=== PATIENT | female | born 1960 | race Caucasian/White ===

== ENCOUNTER → 2019-08-14 12:52 | Outpatient (BNVA) | payer MEDICARE, SELFPAY | PROVIDERS: PCP Family Medicine; Visit Provider Family Medicine | DX: I10 Essential (primary) hypertension (principal); G47.00 Insomnia, unspecified; F41.9 Anxiety disorder, unspecified; E78.2 Mixed hyperlipidemia; K21.9 Gastro-esophageal reflux disease without esophagitis | CPT/HCPCS: 80053; 80061; 84443 ==

== ENCOUNTER → 2019-08-28 09:08 | Outpatient (BNVA) | payer MEDICARE, SELFPAY | PROVIDERS: PCP Family Medicine; Visit Provider Family Medicine | DX: R30.0 Dysuria (principal); N39.0 Urinary tract infection, site not specified; N30.00 Acute cystitis without hematuria | CPT/HCPCS: 80053; 87077; 87086; 87186 ==

== ENCOUNTER → 2019-12-06 11:03 | Outpatient (BNVA) | payer MEDICARE, SELFPAY | PROVIDERS: PCP Family Medicine; Visit Provider Nurse Practitioner Family | DX: Z11.59 Encounter for screening for other viral diseases (principal); Z20.828 Contact with and (suspected) exposure to other viral communicable diseases; J06.9 Acute upper respiratory infection, unspecified | CPT/HCPCS: 87635 ==

== ENCOUNTER 2019-12-09 10:57 | Emergency (ER) | payer MEDICARE, SELFPAY ==
[2019-12-09 11:04] VITALS: BP 125/75; PULSE 84; RESP 17; TEMP 36.7; O2SAT 99; BMI 45.7
--- NOTE | 2019-12-09 11:28 | W.ED.GENADLT ---
HPI - General Adult General: Chief complaint: General Medical Stated complaint: Muscle aches,fatigue,swelling under left armpit Time Seen by Provider: 12/09/19 11:24 History of Present Illness: HPI narrative: Center complains about fever chills not feeling good recently diagnosed with lymphadenitis left armpit area placed on Bactrim for about 24 hours she said she not getting better here because it hurts. Did not feel good. Fever and chills she had or previous to this infection has no Covid exposure has been tested for Covid recently come back negative MD complaint: Left armpit pain Onset (ago): day(s) Severity scale (1-10): 6 Quality: aching Pain Consistency: constant Relieving factors: none Associated symptoms: Reports fevers/chills; Deny chest pain, dyspnea, headache(s), nausea, rash or vomiting Review of Systems Const: Reports: fever(s), chills and body aches Eyes: Denies: change in vision or blurry vision ENMT: Denies: throat pain or nasal congestion Card: Denies: chest pain or dyspnea on exertion Resp: Denies: dyspnea, productive cough or non-productive cough GI: Denies: abdominal pain, nausea or vomiting Musc: Denies: extremity pain Skin/Breast: Reports: skin tenderness and other (Tenderness left armpit); Denies: rash Neuro: Denies: headache(s) Psych: Denies: anxiety or depression Tomas/Lymph: Denies: easy bruising PFSH ED PFSH: Medical History (Updated 12/09/19 @ 12:41 by KAUR Hodge) Anxiety Hypertension Social History (Updated 12/09/19 @ 11:22 by Michelle Garcia RN) Smoking and tobacco status: never smoked Physical Exam Const: COMMON NORMALS: no acute distress, average body habitus and patient oriented x3 HENMT: COMMON NORMALS: normocephalic HEAD & SCALP: normal to inspection and normocephalic FACE & SINUS: normal facial exam Eye: COMMON NORMALS: conjunctivae normal GENERAL EYE: appearance normal, both eyes and all related structures CONJUNCTIVA: Yes conjunctivae normal Neck/C-Spine: COMMON NORMALS: no JVD Chest: COMMONS NORMALS: normal inspection of the chest Resp: COMMON NORMALS: normal respiratory effort and clear to auscultation bilaterally AUSCULTATION: clear to auscultation bilaterally Cardio: COMMON NORMALS: no JVD, regular rate and regular rhythm RATE: regular rate RHYTHM: regular rhythm GI: COMMON NORMALS: Normal to inspection, nondistended, normoactive bowel sounds present Extremity: COMMON NORMALS: normal to inspection and full ROM Neuro: COMMON NORMALS: patient oriented x3 Skin: NARRATIVE SKIN EXAM: Tenderness to left armpit that radiates toward the tail of the left breast slightly swollen no redness noted Course Vital Signs: Vital signs: Vital Signs Temperature 98.1 F 12/09/19 11:04 Pulse Rate 84 12/09/19 11:04 Respiratory Rate 17 12/09/19 11:04 Blood Pressure 116/69 12/09/19 12:19 Pulse Oximetry 99 12/09/19 11:04 [facility] - General Adult Lab Data: Labs: Lab Results 12/09/19 12/09/19 Range/Units 12:08 12:08 WBC 6.9 (4.0-10.0) 10^3/ uL RBC 4.69 (4.1-5.3) 10^6/u L Hgb 12.8 (11.5-15.3) g/dL Hct 40.3 (37.0-47.0) % MCV 85.9 (81-99) fL MCH 27.3 L (28.0-34.0) pg MCHC 31.8 (30.0-36.0) g/dL RDW 13.2 (12.1-15.1) % Plt Count 209 (130-400) 10^3/c mm MPV 11.5 H (7.4-10.4) fL Neut % (Auto) 58.1 % Lymph % (Auto) 26.6 % [place] % (Auto) 8.0 % Eos % (Auto) 6.6 % Baso % (Auto) 0.6 % Neut # (Auto) 3.98 (1.8-7.7) 10^3/u L Lymph # (Auto) 1.8 (0.8-4.8) 10^3/u L [place] # (Auto) 0.6 (0.2-0.9) 10^3/u L Eos # (Auto) 0.5 (0.0-0.8) 10^3/u L Baso # (Auto) 0.0 (0.0-0.1) 10^3/u L Nucleated RBC % (a uto) 0 % Nucleated RBCs # 0.0 /100WBC Sodium 136 (136-145) mmol/L Potassium 3.8 (3.5-5.1) mmol/L Chloride 100 (98-107) mmol/L Carbon Dioxide 26 (22-29) mmol/L Anion Gap 13.8 (5-19) BUN 11 (8-23) mg/dL Creatinine 0.8 (0.5-0.9) mg/dL GFR Calculation 73.2 L (90-130) mL/min Glucose 113 (65-115) mg/dL Calculated Osmolal ity 282 L (285-295) mOsm/k g Calcium 9.1 (8.5-10.5) mg/dL Discharge Plan Discharge Patient Disposition: Home Clinical Impression: Lymphadenitis Condition: Stable Prescriptions: New tramadol 50 mg tablet 50 mg PO TID PRN (Reason: pain) Qty: 14 RF: 0 No Action sulfamethoxazole-trimethoprim [Bactrim DS] 800-160 mg tablet 1 tab PO BID Qty: 20 RF: 0 diazepam 5 mg tablet 5 mg PO BID PRN (Reason: anxiety) Qty: 60 RF: 3 atorvastatin 20 mg tablet 20 mg PO DAILY Qty: 30 RF: 3 lisinopril 40 mg tablet 40 mg PO DAILY Qty: 30 RF: 4 pantoprazole 40 mg tablet,delayed release (DR/EC) 40 mg PO BID Qty: 60 RF: 4 phenazopyridine [Pyridium] 100 mg tablet 100 mg PO TID PRN (Reason: pain) Qty: 20 RF: 0 sertraline [Zoloft] 100 mg tablet 100 mg PO DAILY Qty: 30 RF: 3 trazodone 100 mg tablet 100 mg PO BEDTIME RF: 0 Discharge Orders: Discharge Order (Routine); Ordered 12/09/19 Ordered By: Layton Nolasco Referrals: Angy Daly MD [Primary Care Provider] - Discharge Diet: Usual diet Discharge Activity: Increase activity as tolerated Activity Restrictions/Additional Instructions: Follow-up your primary care doctor this week and get this area of tenderness relooked at see if you might need an ultrasound your breast are that area. Take medication as directed and the medication that you are already on for this continue that Discharge Date/Time: 12/09/19 12:48 Coding Level of Care Code ED Water Quality Analyst for Chg Fwd Exam Comprehensive
[2019-12-09] MEDS: HYDROcodone-acetaminophen 5-325 mg Tablet 1 TAB PO (11:46)
[2019-12-09 12:19] VITALS: BP 116/69
[2019-12-09 12:19] LABS: Basophils % 0.6 %; Eosinophils # 0.5 10^3/uL (0.0-0.8); Eosinophils % 6.6 %; Hematocrit 40.3 % (37.0-47.0); Hemoglobin 12.8 g/dL (11.5-15.3); Lymphocytes # 1.8 10^3/uL (0.8-4.8); Lymphocytes % 26.6 %; Mean Corpuscular HGB Conc 31.8 g/dL (30.0-36.0); Mean Corpuscular Hemoglobin 27.3 pg (28.0-34.0); Mean Corpuscular Volume 85.9 fL (81-99); Mean Platelet Volume 11.5 fL (7.4-10.4); Monocytes # 0.6 10^3/uL (0.2-0.9); Neutrophils # 3.98 10^3/uL (1.8-7.7); Neutrophils % 58.1 %; Nucleated Red Blood Cells % 0 %; Platelet Count 209 10^3/cmm (130-400); Red Blood Count 4.69 10^6/uL (4.1-5.3); Red Cell Distribution Width 13.2 % (12.1-15.1); White Blood Count 6.9 10^3/uL (4.0-10.0)
[2019-12-09] MEDS: cefTRIAXone 1,000 mg SDV 1000 MG IM (12:24)
[2019-12-09] MEDS: lidocaine 1% INJ 20 mL 2.1 ML IM (12:24)
[2019-12-09 12:39] LABS: Anion Gap 13.8 (5-19); Blood Urea Nitrogen 11 mg/dL (8-23); Calcium 9.1 mg/dL (8.5-10.5); Carbon Dioxide 26 mmol/L (22-29); Chloride 100 mmol/L (98-107); Glomerular Filtration Rate 73.2 mL/min (90-130); Glucose 113 mg/dL (65-115); Osmolality Calculated 282 mOsm/kg (285-295); Potassium 3.8 mmol/L (3.5-5.1); Sodium 136 mmol/L (136-145)
== END 2019-12-09 12:48 | disposition home or self-care (01) ==
PROVIDERS: Emergency Provider Nurse Practitioner Family; PCP Family Medicine
DX: I88.9 Nonspecific lymphadenitis, unspecified (principal); I10 Essential (primary) hypertension
CPT/HCPCS: 12345; 80048; 85025; 96372; 99281; 99283; J0696

== ENCOUNTER 2019-12-14 08:39 | Outpatient (CLI) | payer MEDICARE, SELFPAY ==
--- NOTE | 2019-12-14 08:45 | US_ITS ---
WS: [id number] INDICATION: Left axillary swelling tenderness TECHNIQUE: Ultrasound left axilla. FINDINGS: Ultrasound left axilla in the area of concern. 2 lymph nodes are visualized, the largest me asuring 3.8 x 2.2 x 2.4 CM. This lymph node demonstrates abnormal cortical thickening with partial re placement of the fatty hilum. Smaller more normal-appearing lymph node measures 1.8 x 0.8 x 1.5 CM. Consider ultrasound-guided biop sy of the larger lymph node US/US soft tissue/extremity [id number] IMPRESSION: Enlarged lymph nodes in the left axilla the largest measuring 3.8 x 2.2 x 2.4 CM with abnormal cortical thickening. Consider ultrasound-guided bio psy for further evaluation.
== END 2019-12-14 08:40 | disposition home or self-care (01) ==
LOC: RAD 08:45
PROVIDERS: PCP Family Medicine; Visit Provider Nurse Practitioner Family
DX: M79.89 Other specified soft tissue disorders (principal); R59.0 Localized enlarged lymph nodes
CPT/HCPCS: 76882

== ENCOUNTER 2019-12-19 09:28 | Outpatient (CLI) | payer MEDICARE, SELFPAY ==
[2019-12-19] MEDS: iohexol 300 mg/mL 50 mL Btl PO (10:13)
--- NOTE | 2019-12-19 11:00 | CT_ITS ---
WS: [id number] CT CHEST, ABDOMEN, AND PELVIS TECHNIQUE: Contrast-enhanced CT of the chest, abdomen, and pelvis with coronal and sagittal reformatt ed images. CLINICAL INFORMATION: unexplained weight loss; fatigue COMPARISON: None. DLP: 2265.[address] scans at [facility] use at least one of these dose optimization techniques: automat ed exposure control; mA and/or kV adjustment per patient size (includes targeted exams where dose is matched to clinical indication); or iterative reconstruction. CT CHEST: Homogeneously enhancing well-circumscribed anterior mediastinal mass abutting the left main pulmonary artery and pulmonary artery trunk in a suprahilar location. This measures approximately 5.2 x 4.0 x 4.3 cm AP by transverse by craniocaudal. This appears well-circumscribed. Preservation of the fat bernard ne between the mass and surrounding vascular structures. No evidence of invasion. No significant mass effect on the left main pulmonary artery. Proximal main pulmonary arteries are patent. Normal caliber thoracic aorta. No mediastinal or hilar l ymphadenopathy. No axillary lymphadenopathy. Both lungs are well aerated. No focal pneumonia or pleur al fluid. No suspicious pulmonary parenchymal abnormalities. CT ABDOMEN AND PELVIS: Diffuse fatty infiltration of the liver. Gastric lap banding. Normal spleen. Fatty atrophy of the creas. Adrenal glands are normal. Normal renal parenchymal enhancement. No hydronephrosis. Normal asya iber abdominal aorta. Diverticulosis. No evidence of acute diverticulitis. No evidence of small or large bowel obstruction. Tiny fat-containing umbilical hernia. No adenopathy in the abdomen or pelvis. Prior postoperative changes hysterectomy. Prior postoperative cholecystectomy. Gastric lap banding. CT/CT chest abd pel w con* IMPRESSION: 1. Well-circumscribed enhancing solid left anterior mediastinal mass abutting the pulmonary trunk and left main pulmonary artery in a suprahilar location. 2. This lesion measures 5.2 x 4.0 x 4.3 cm and is well circumscribed with pres ervation of the surrounding fat planes. Primary differential consideration incl udes thymic neoplasm such as thymoma or thymic carcinoma. Lymphoma and thymic c arcinoid are additional less likely considerations. Metastatic disease and lung neoplasm/lymphadenopathy not entirely excluded. PET/CT may be helpful in furth er evaluation. 3. Otherwise no mediastinal or hilar lymphadenopathy. No axillary lymphadenopa thy. 4. Lungs are well aerated. No suspicious pulmonary parenchymal abnormalities. 5. Diffuse fatty infiltration of the liver. Prior cholecystectomy. 6. Prior gastric lap banding. 7. No adenopathy in the abdomen or pelvis. 8. Prior hysterectomy. 9. Sigmoid diverticulosis.
[2019-12-19] MEDS: iohexol 300 mg/mL 100 mL Btl IV (11:32)
== END 2019-12-19 09:29 | disposition home or self-care (01) ==
LOC: RADWPI 09:31
PROVIDERS: PCP Family Medicine; Visit Provider Nurse Practitioner Family
DX: R63.4 Abnormal weight loss (principal); R53.83 Other fatigue; K57.30 Diverticulosis of large intestine without perforation or abscess without bleeding; Z90.710 Acquired absence of both cervix and uterus; K76.0 Fatty (change of) liver, not elsewhere classified
CPT/HCPCS: 71260; 74177; 82306; 82607; 84443; Q9967

== ENCOUNTER 2019-12-27 12:48 | Outpatient (CLI) | payer MEDICARE, SELFPAY ==
--- NOTE | 2019-12-27 13:00 | US_ITS ---
WS: [id number] INDICATION: Enlarged lymph node TECHNIQUE: Ultrasound guided biopsy left axilla FINDINGS: Ultrasound guided biopsy left axilla. The procedure including risks benefits and complicati ons were discussed with the patient who agreed to proceed. Using sterile technique patient was preppe d and draped in usual sterile fashion. Timeout was performed. After 1% lidocaine, using ultrasound gu idance, 6 18-gauge cores were obtained of the enlarged left axillary lymph node. No immediate complic ations. US/US biopsy lymph node [id number] IMPRESSION: Uncomplicated ultrasound-guided biopsy left axillary lymph node.
== END 2019-12-27 12:49 | disposition home or self-care (01) ==
LOC: RAD 12:52
PROVIDERS: PCP Family Medicine; Visit Provider Nurse Practitioner Family
DX: R59.1 Generalized enlarged lymph nodes (principal)
CPT/HCPCS: 38505; 76942; 88305

== ENCOUNTER 2020-01-07 10:19 | Outpatient (CLI) | payer MEDICARE, SELFPAY ==
--- NOTE | 2020-01-07 10:30 | MM_ITS ---
WS: [id number] DIAGNOSTIC BILATERAL DIGITAL MAMMOGRAM WITH CAD Bilateral breast ultrasound, limited HISTORY: bilateral breast lump/tenderness; family hx of breast cancer 5 palpable areas were identified by the patient. 3 in the LEFT breast and 2 in the RIGHT. COMPARISON: None available. TECHNIQUE: Bilateral craniocaudad, mediolateral oblique, and mediolateral views are submitted. Spot c ompression RIGHT CC, LEFT CC and LEFT MLO. Computer aided detection utilized. Breast composition: There are scattered areas of fibroglandular density. Palpable markers are placed in the superior RIGHT breast, one palpable marker medial and one palpable marker lateral to the nippl e. No underlying mass identified. Benign calcifications in the LEFT breast. There are 2 palpable odin ers in the upper outer quadrant of the LEFT breast and a single marker near 9:00. No underlying nodul es are identified. Bilateral breast ultrasound, limited. RIGHT breast: Patient directed to areas of palpable abnormalities. At 9:00 and 1:00 there are no susp icious nodules. At 1:00 there is an area of mild increased echogenicity which may be a lipoma. LEFT breast: Ultrasound directed by the patient 1:00, 10:00 and 4:00. No underlying masses are identi fied. MM/[place] [id number] IMPRESSION: BI-RADS: 2-Benign FOLLOW UP: 1 Year Follow-up
--- NOTE | 2020-01-07 11:00 | US_ITS ---
WS: [id number] DIAGNOSTIC BILATERAL DIGITAL MAMMOGRAM WITH CAD Bilateral breast ultrasound, limited HISTORY: bilateral breast lump/tenderness; family hx of breast cancer 5 palpable areas were identified by the patient. 3 in the LEFT breast and 2 in the RIGHT. COMPARISON: None available. TECHNIQUE: Bilateral craniocaudad, mediolateral oblique, and mediolateral views are submitted. Spot c ompression RIGHT CC, LEFT CC and LEFT MLO. Computer aided detection utilized. Breast composition: There are scattered areas of fibroglandular density. Palpable markers are placed in the superior RIGHT breast, one palpable marker medial and one palpable marker lateral to the nippl e. No underlying mass identified. Benign calcifications in the LEFT breast. There are 2 palpable odin ers in the upper outer quadrant of the LEFT breast and a single marker near 9:00. No underlying nodul es are identified. Bilateral breast ultrasound, limited. RIGHT breast: Patient directed to areas of palpable abnormalities. At 9:00 and 1:00 there are no susp icious nodules. At 1:00 there is an area of mild increased echogenicity which may be a lipoma. LEFT breast: Ultrasound directed by the patient 1:00, 10:00 and 4:00. No underlying masses are identi fied. US/US breast BI limited* [id number] IMPRESSION: BI-RADS: 2-Benign FOLLOW UP: 1 Year Follow-up
== END 2020-01-07 10:20 | disposition home or self-care (01) ==
LOC: RADSHAW 10:21
PROVIDERS: PCP Family Medicine; Visit Provider Nurse Practitioner Family
DX: N63.10 Unspecified lump in the right breast, unspecified quadrant (principal); N63.20 Unspecified lump in the left breast, unspecified quadrant; Z80.3 Family history of malignant neoplasm of breast; N64.4 Mastodynia
CPT/HCPCS: 76642; 77066

== ENCOUNTER → 2020-01-28 14:51 | Outpatient (BNVA) | payer MEDICARE, SELFPAY | PROVIDERS: PCP Family Medicine; Visit Provider Family Medicine | DX: M79.631 Pain in right forearm (principal) | CPT/HCPCS: 73090 ==

== ENCOUNTER → 2020-02-04 09:18 | Outpatient (BNVA) | payer MEDICARE, SELFPAY | PROVIDERS: PCP Family Medicine; Visit Provider Family Medicine | DX: M79.631 Pain in right forearm (principal) | CPT/HCPCS: 73090 ==

== ENCOUNTER → 2020-06-09 14:50 | Outpatient (BNVA) | payer MEDICARE, SELFPAY | PROVIDERS: PCP Family Medicine; Visit Provider Family Medicine | DX: E78.2 Mixed hyperlipidemia (principal); E55.9 Vitamin D deficiency, unspecified; K21.9 Gastro-esophageal reflux disease without esophagitis; R73.09 Other abnormal glucose; F41.9 Anxiety disorder, unspecified; I10 Essential (primary) hypertension; Z77.22 Contact with and (suspected) exposure to environmental tobacco smoke (acute) (chronic); Z71.89 Other specified counseling | CPT/HCPCS: 80053; 80061; 82306; 83036; 84443; 85025 ==

== ENCOUNTER → 2020-08-14 13:12 | Outpatient (BNVA) | payer MEDICARE, SELFPAY | PROVIDERS: PCP Family Medicine; Visit Provider Nurse Practitioner Family | DX: Z20.822 Contact with and (suspected) exposure to COVID-19 (principal); J06.9 Acute upper respiratory infection, unspecified | CPT/HCPCS: 87635 ==

== ENCOUNTER 2020-08-15 05:02 | Emergency (ER) | payer MEDICARE, SELFPAY ==
[2020-08-15] VITALS (8 sets, daily range): BP systolic 149–170; BP diastolic 84–120; PULSE 84–92; RESP 16–22; TEMP 36.9; O2SAT 93–96; BMI 43.9
--- NOTE | 2020-08-15 05:22 | XRR_ITS ---
PROCEDURE INFORMATION: Exam: XR Chest Exam date and time: 08/15/2020 5:22 AM Age: 59 years old Clinical indication: Cough and shortness of breath; Patient HX: Cough with SOB. Known left hilar mass. TECHNIQUE: Imaging protocol: XR of the chest. Views: 1 view. COMPARISON: CT chest abd pel w con* 12/19/2019 11:31 AM FINDINGS: Lungs: There is a 5 by 5.6 cm left hilar mass. No consolidation. Pleural spaces: Unremarkable. No pleural effusion. No pneumothorax. Heart/Mediastinum: No cardiomegaly. Bones/joints: No acute fracture. XR/XR chest 1V portable [id number] IMPRESSION: 5 x 5.6 cm left hilar mass, stable compared to CT dated 12/19/2019. No consolidation.
--- NOTE | 2020-08-15 05:22 | ECG_ITS ---
[facility] Test Date: 2020-08-15 Pat Name: Vicki Mirza Department: Room: Gender: Female Government Clerk: : 1960 Requested By: Rajendra Tinsley Order Number: [id number] Tonia MD: Astrid Short M.D. Measurements Intervals [place] Rate: 85 P: 73 NE: 184 QRS: 52 QRSD: 92 T: 59 QT: 381 QTc: 455 Interpretive Statements SINUS RHYTHM No previous ECG available for comparison Electronically Signed On 08-15-2020 14:14:27 CDT by Astrid Short M.D. [email or web address]
--- NOTE | 2020-08-15 05:26 | W.ED.SOB ---
Documented by User: Rajendra Tinsley MD 08/15/20 05:45 HPI - SOB/Dyspnea General: Chief Complaint: COVID symptoms Stated Complaint: covid symptoms, awaiting test results Time Seen by Provider: 08/15/20 05:24 Source: patient Mode of arrival: ambulatory Limitations: no limitations History of Present Illness: HPI Narrative: 59-year-old female states she has had a increasing cough and wheezing over the last 2 days. States she is also been having increasing shortness of breath especially with any activity. She does have a very audible wheeze that is coarse in the room. She denies any fever. She was tested yesterday for Covid results is not back. She is also prescribed albuterol inhaler which she states is at a minimal improvement in her symptoms. Associated symptoms: Deny abdominal pain, chest pain, fever(s), nausea or vomiting Review of Systems Const: Denies: fever(s), chills, body aches or change in appetite Eyes: Denies: blurry vision or eye discomfort ENMT: Denies: throat pain or dental pain Card: Denies: chest pain Resp: Reports: dyspnea, non-productive cough and wheezing GI: Denies: abdominal pain, nausea, vomiting or diarrhea : Denies: dysuria Musc: Denies: neck pain or back pain Skin/Breast: Denies: rash Neuro: Denies: headache(s) Psych: Denies: depression Tomas/Lymph: Denies: easy bruising All/Imm: Denies: urticaria PFSH ED PFSH: Medical History (Updated 08/15/20 @ 09:35 by Raymon Roman DO) Anxiety Hypertension Social History Smoking and tobacco status: never smoked Second hand smoke exposure: Yes Alcohol intake: never Lives independently: Yes Marital status: / service: No Current occupational status: disabled History of recent travel: No Current gender identity: Female Special mauro needs: No Agree to transfusion: Yes Physical Exam Const: COMMON NORMALS: patient oriented x3 GENERAL APPEARANCE: in distress (mild) HENMT: COMMON NORMALS: normocephalic and atraumatic HEAD & SCALP: normocephalic and atraumatic Eye: COMMON NORMALS: Equal, round and reactive pupils present and EOMs intact bilaterally PUPIL: Yes Equal, round and reactive pupils present Neck/C-Spine: COMMON NORMALS: full ROM and supple Chest: COMMONS NORMALS: normal inspection of the chest and normal palpation of entire chest wall Resp: COMMON NORMALS: No retractions and No use of accessory muscles EFFORT & INSPECTION: Yes tachypneic AUSCULTATION: wheezes Cardio: COMMON NORMALS: regular rate, regular rhythm and No murmurs present (Cardio) RATE: regular rate RHYTHM: regular rhythm GI: COMMON NORMALS: Normal to inspection, nondistended, normoactive bowel sounds present, Soft to palpation, non-tender and no masses PALPATION: Yes Soft to palpation Extremity: COMMON NORMALS: normal to inspection and full ROM Neuro: COMMON NORMALS: patient oriented x3, moves all extremities and no focal motor deficits Psych: COMMON NORMALS: mental status grossly normal, Normal thought process present and cooperative THOUGHT PROCESS: Normal thought process present Skin: COMMON NORMALS: no rashes or lesions noted and no wounds GENERAL SKIN EXAM: no rashes or lesions noted Course Vital Signs: Vital signs: Vital Signs Temperature 98.4 F 08/15/20 05:29 Pulse Rate 92 08/15/20 09:50 Respiratory Rate 18 08/15/20 07:39 Blood Pressure 149/98 08/15/20 09:50 Pulse Oximetry 96 08/15/20 09:50 MDM - SOB/Dyspnea Lab Data: Labs: Lab Results 08/15/20 08/15/20 08/15/20 Range/Units 05:35 05:35 05:35 WBC 7.2 (4.0-10.0) 10^3/ uL RBC 4.81 (4.1-5.3) 10^6/u L Hgb 13.4 (11.5-15.3) g/dL Hct 42.1 (37.0-47.0) % MCV 87.5 (81-99) fL MCH 27.9 L (28.0-34.0) pg MCHC 31.8 (30.0-36.0) g/dL RDW 14.1 (12.1-15.1) % Plt Count 189 (130-400) 10^3/c mm MPV 11.8 H (7.4-10.4) fL Neut % (Auto) 51.3 % Lymph % (Auto) 33.8 % Corson % (Auto) 7.5 % Eos % (Auto) 6.5 % Baso % (Auto) 0.6 % Neut # (Auto) 3.70 (1.8-7.7) 10^3/u L Lymph # (Auto) 2.4 (0.8-4.8) 10^3/u L Corson # (Auto) 0.5 (0.2-0.9) 10^3/u L Eos # (Auto) 0.5 (0.0-0.8) 10^3/u L Baso # (Auto) 0.0 (0.0-0.1) 10^3/u L Nucleated RBC % (a uto) 0 % Nucleated RBCs # 0.0 /100WBC Fibrinogen 418 (174-498) mg/dL D-Dimer (0-0.59) ug/mIFE U Specimen Type Sample Site ABG pH (7.35-7.45) ABG pCO2 (35-45) mmHg ABG pO2 (80.0-100.0) mmH g ABG HCO3 (22-26) mmol/L ABG Base Excess (-2.0-2.0) mmol/ L Terence Test Hematocrit (37-47) % O2 Delivery Device FiO2 % Developer Advisor ID Sodium 140 (136-145) mmol/L Potassium 4.1 (3.5-5.1) mmol/L Chloride 103 (98-107) mmol/L Carbon Dioxide 26 (22-29) mmol/L Anion Gap 15.1 (5-19) BUN 17 (8-23) mg/dL Creatinine 0.7 (0.5-0.9) mg/dL GFR Calculation 85.4 L (90-130) mL/min Glucose 139 H (65-115) mg/dL Calculated Osmolal ity 294 (285-295) mOsm/k g Lactic Acid (0.5-2.2) mmol/L Calcium 9.1 (8.5-10.5) mg/dL Total Bilirubin 0.4 (0.15-1.2) mg/dL AST 14 (0-32) U/L ALT < 5 (0-33) U/L Alkaline Phosphata se 80 (35-105) IU/L C-Reactive Protein 3.7 (0.0-4.9) mg/L NT-Pro-B Natriuret Pep 94 (0-125) pg/mL Total Protein 6.7 (6.6-8.7) g/dL Albumin 4.1 (3.5-5.2) g/dL Globulin 2.6 (1.3-4.6) g/dL SARS-CoV-2 Ag (Rap id) (Negative) 08/15/20 08/15/20 08/15/20 Range/Units 05:35 05:35 05:36 WBC (4.0-10.0) 10^3/ uL RBC (4.1-5.3) 10^6/u L Hgb (11.5-15.3) g/dL Hct (37.0-47.0) % MCV (81-99) fL MCH (28.0-34.0) pg MCHC (30.0-36.0) g/dL RDW (12.1-15.1) % Plt Count (130-400) 10^3/c mm MPV (7.4-10.4) fL Neut % (Auto) % Lymph % (Auto) % Corson % (Auto) % Eos % (Auto) % Baso % (Auto) % Neut # (Auto) (1.8-7.7) 10^3/u L Lymph # (Auto) (0.8-4.8) 10^3/u L Corson # (Auto) (0.2-0.9) 10^3/u L Eos # (Auto) (0.0-0.8) 10^3/u L Baso # (Auto) (0.0-0.1) 10^3/u L Nucleated RBC % (a uto) % Nucleated RBCs # /100WBC Fibrinogen (174-498) mg/dL D-Dimer 1.04 H (0-0.59) ug/mIFE U Specimen Type Sample Site ABG pH (7.35-7.45) ABG pCO2 (35-45) mmHg ABG pO2 (80.0-100.0) mmH g ABG HCO3 (22-26) mmol/L ABG Base Excess (-2.0-2.0) mmol/ L Terence Test Hematocrit (37-47) % O2 Delivery Device FiO2 % Developer Advisor ID Sodium (136-145) mmol/L Potassium (3.5-5.1) mmol/L Chloride (98-107) mmol/L Carbon Dioxide (22-29) mmol/L Anion Gap (5-19) BUN (8-23) mg/dL Creatinine (0.5-0.9) mg/dL GFR Calculation (90-130) mL/min Glucose (65-115) mg/dL Calculated Osmolal ity (285-295) mOsm/k g Lactic Acid 1.0 (0.5-2.2) mmol/L Calcium (8.5-10.5) mg/dL Total Bilirubin (0.15-1.2) mg/dL AST (0-32) U/L ALT (0-33) U/L Alkaline Phosphata se (35-105) IU/L C-Reactive Protein (0.0-4.9) mg/L NT-Pro-B Natriuret Pep (0-125) pg/mL Total Protein (6.6-8.7) g/dL Albumin (3.5-5.2) g/dL Globulin (1.3-4.6) g/dL SARS-CoV-2 Ag (Rap id) Negative (Negative) 08/15/20 Range/Units 05:53 WBC (4.0-10.0) 10^3/ uL RBC (4.1-5.3) 10^6/u L Hgb (11.5-15.3) g/dL Hct (37.0-47.0) % MCV (81-99) fL MCH (28.0-34.0) pg MCHC (30.0-36.0) g/dL RDW (12.1-15.1) % Plt Count (130-400) 10^3/c mm MPV (7.4-10.4) fL Neut % (Auto) % Lymph % (Auto) % Corson % (Auto) % Eos % (Auto) % Baso % (Auto) % Neut # (Auto) (1.8-7.7) 10^3/u L Lymph # (Auto) (0.8-4.8) 10^3/u L Corson # (Auto) (0.2-0.9) 10^3/u L Eos # (Auto) (0.0-0.8) 10^3/u L Baso # (Auto) (0.0-0.1) 10^3/u L Nucleated RBC % (a uto) % Nucleated RBCs # /100WBC Fibrinogen (174-498) mg/dL D-Dimer (0-0.59) ug/mIFE U Specimen Type Arterial Sample Site Radial, right ABG pH 7.43 (7.35-7.45) ABG pCO2 42.6 (35-45) mmHg ABG pO2 67.4 L (80.0-100.0) mmH g ABG HCO3 28.3 H (22-26) mmol/L ABG Base Excess 3.5 H (-2.0-2.0) mmol/ L Terence Test Pos Hematocrit 41.3 (37-47) % O2 Delivery Device Room air FiO2 21.0 % Developer Advisor ID Harkr Sodium (136-145) mmol/L Potassium (3.5-5.1) mmol/L Chloride (98-107) mmol/L Carbon Dioxide (22-29) mmol/L Anion Gap (5-19) BUN (8-23) mg/dL Creatinine (0.5-0.9) mg/dL GFR Calculation (90-130) mL/min Glucose (65-115) mg/dL Calculated Osmolal ity (285-295) mOsm/k g Lactic Acid (0.5-2.2) mmol/L Calcium (8.5-10.5) mg/dL Total Bilirubin (0.15-1.2) mg/dL AST (0-32) U/L ALT (0-33) U/L Alkaline Phosphata se (35-105) IU/L C-Reactive Protein (0.0-4.9) mg/L NT-Pro-B Natriuret Pep (0-125) pg/mL Total Protein (6.6-8.7) g/dL Albumin (3.5-5.2) g/dL Globulin (1.3-4.6) g/dL SARS-CoV-2 Ag (Rap id) (Negative) EKG Data^: EKG 1: Attestation: I personally reviewed and interpreted this EKG as follows: EKG Interpretation Date: 08/15/20 EKG interpretation time: 05:43 Interpretation: nsr hr [address] or twave abnormalities qrs 92 qtc 423 Discharge Plan Discharge Patient Disposition: Home Clinical Impression: COVID-19, Mass in chest Condition: Stable Prescriptions: New dexamethasone 6 mg tablet 6 mg PO DAILY Qty: 7 RF: 0 albuterol sulfate 90 mcg/actuation HFA aerosol inhaler 2 inh INHALATION Q4H PRN (Reason: shortness of breath or wheezing) Qty: 18 RF: 0 No Action albuterol sulfate 90 mcg/actuation HFA aerosol inhaler See Rx Instructions .ROUTE .COMPLEX Qty: 8.5 RF: 2 atorvastatin 20 mg tablet See Rx Instructions .ROUTE .COMPLEX Qty: 30 RF: 3 ergocalciferol (vitamin D2) 1,250 mcg (50,000 unit) capsule See Rx Instructions .ROUTE .COMPLEX Qty: 4 RF: 2 lisinopril 40 mg tablet 40 mg PO DAILY Qty: 30 RF: 4 pantoprazole 40 mg tablet,delayed release (DR/EC) 40 mg PO BID Qty: 60 RF: 4 sertraline 100 mg tablet See Rx Instructions .ROUTE .COMPLEX Qty: 30 RF: 3 trazodone 100 mg tablet See Rx Instructions .ROUTE .COMPLEX Qty: 30 RF: 3 (DME) BLOOD PRESSURE CUFF See Rx Instructions .Route .MEDSUPPLY Qty: 1 RF: 0 diazepam 5 mg tablet 5 mg PO BID Qty: 60 RF: 1 Discharge Orders: Discharge ED (Routine); Ordered 08/15/20 Ordered By: Raymon Roman Referrals: Betsy Rivero MD [Primary Care Provider] - Discharge Diet: Usual diet Discharge Activity: Limit activity as instructed Patient Instructions: Opioid Safety Activity Restrictions/Additional Instructions: Monitor oxygen at home on a regular basis if falls below 90 to 92% consistently return to the emergency room. Maintain self quarantine until your Covid results gets back. Sign Out Sign Out Data: Patient Sign Out occurred on 08/15/20 at 06:07. Patient's care was discussed, and care was transferred from to Raymon Roman DO. Coding Level of Care Code ED Manager Supply Chain Planning for Chg Fwd Exam Comprehensive Documented by User: Raymon Roman DO 08/18/20 12:43 HPI - SOB/Dyspnea General: Chief Complaint: COVID symptoms Stated Complaint: covid symptoms, awaiting test results Time Seen by Provider: 08/15/20 05:24 [facility] ED PFSH: Medical History (Updated 08/15/20 @ 09:35 by Raymon Roman DO) Anxiety Hypertension Social History Smoking and tobacco status: never smoked Second hand smoke exposure: Yes Alcohol intake: never Lives independently: Yes Marital status: / service: No Current occupational status: disabled History of recent travel: No Current gender identity: Female Special mauro needs: No Agree to transfusion: Yes Course Vital Signs: Vital signs: Vital Signs Temperature 98.4 F 08/15/20 05:29 Pulse Rate 92 08/15/20 09:50 Respiratory Rate 18 08/15/20 07:39 Blood Pressure 149/98 08/15/20 09:50 Pulse Oximetry 96 08/15/20 09:50 MDM - SOB/Dyspnea MDM Narrative: Medical decision making narrative: Patient is stable at this time we will go and discharge her home on dexamethasone and albuterol. She does have a mass in her chest recommend that she follow-up with that with your primary care doctor for further continued monitoring if has any worsening or change symptoms return to the emergency room Lab Data: Labs: Lab Results 08/15/20 08/15/20 08/15/20 Range/Units 05:35 05:35 05:35 WBC 7.2 (4.0-10.0) 10^3/ uL RBC 4.81 (4.1-5.3) 10^6/u L Hgb 13.4 (11.5-15.3) g/dL Hct 42.1 (37.0-47.0) % MCV 87.5 (81-99) fL MCH 27.9 L (28.0-34.0) pg MCHC 31.8 (30.0-36.0) g/dL RDW 14.1 (12.1-15.1) % Plt Count 189 (130-400) 10^3/c mm MPV 11.8 H (7.4-10.4) fL Neut % (Auto) 51.3 % Lymph % (Auto) 33.8 % Corson % (Auto) 7.5 % Eos % (Auto) 6.5 % Baso % (Auto) 0.6 % Neut # (Auto) 3.70 (1.8-7.7) 10^3/u L Lymph # (Auto) 2.4 (0.8-4.8) 10^3/u L Corson # (Auto) 0.5 (0.2-0.9) 10^3/u L Eos # (Auto) 0.5 (0.0-0.8) 10^3/u L Baso # (Auto) 0.0 (0.0-0.1) 10^3/u L Nucleated RBC % (a uto) 0 % Nucleated RBCs # 0.0 /100WBC Fibrinogen 418 (174-498) mg/dL D-Dimer (0-0.59) ug/mIFE U Specimen Type Sample Site ABG pH (7.35-7.45) ABG pCO2 (35-45) mmHg ABG pO2 (80.0-100.0) mmH g ABG HCO3 (22-26) mmol/L ABG Base Excess (-2.0-2.0) mmol/ L Terence Test Hematocrit (37-47) % O2 Delivery Device FiO2 % Developer Advisor ID Sodium 140 (136-145) mmol/L Potassium 4.1 (3.5-5.1) mmol/L Chloride 103 (98-107) mmol/L Carbon Dioxide 26 (22-29) mmol/L Anion Gap 15.1 (5-19) BUN 17 (8-23) mg/dL Creatinine 0.7 (0.5-0.9) mg/dL GFR Calculation 85.4 L (90-130) mL/min Glucose 139 H (65-115) mg/dL Calculated Osmolal ity 294 (285-295) mOsm/k g Lactic Acid (0.5-2.2) mmol/L Calcium 9.1 (8.5-10.5) mg/dL Total Bilirubin 0.4 (0.15-1.2) mg/dL AST 14 (0-32) U/L ALT < 5 (0-33) U/L Alkaline Phosphata se 80 (35-105) IU/L C-Reactive Protein 3.7 (0.0-4.9) mg/L NT-Pro-B Natriuret Pep 94 (0-125) pg/mL Total Protein 6.7 (6.6-8.7) g/dL Albumin 4.1 (3.5-5.2) g/dL Globulin 2.6 (1.3-4.6) g/dL SARS-CoV-2 Ag (Rap id) (Negative) 08/15/20 08/15/20 08/15/20 Range/Units 05:35 05:35 05:36 WBC (4.0-10.0) 10^3/ uL RBC (4.1-5.3) 10^6/u L Hgb (11.5-15.3) g/dL Hct (37.0-47.0) % MCV (81-99) fL MCH (28.0-34.0) pg MCHC (30.0-36.0) g/dL RDW (12.1-15.1) % Plt Count (130-400) 10^3/c mm MPV (7.4-10.4) fL Neut % (Auto) % Lymph % (Auto) % Corson % (Auto) % Eos % (Auto) % Baso % (Auto) % Neut # (Auto) (1.8-7.7) 10^3/u L Lymph # (Auto) (0.8-4.8) 10^3/u L Corson # (Auto) (0.2-0.9) 10^3/u L Eos # (Auto) (0.0-0.8) 10^3/u L Baso # (Auto) (0.0-0.1) 10^3/u L Nucleated RBC % (a uto) % Nucleated RBCs # /100WBC Fibrinogen (174-498) mg/dL D-Dimer 1.04 H (0-0.59) ug/mIFE U Specimen Type Sample Site ABG pH (7.35-7.45) ABG pCO2 (35-45) mmHg ABG pO2 (80.0-100.0) mmH g ABG HCO3 (22-26) mmol/L ABG Base Excess (-2.0-2.0) mmol/ L Terence Test Hematocrit (37-47) % O2 Delivery Device FiO2 % Developer Advisor ID Sodium (136-145) mmol/L Potassium (3.5-5.1) mmol/L Chloride (98-107) mmol/L Carbon Dioxide (22-29) mmol/L Anion Gap (5-19) BUN (8-23) mg/dL Creatinine (0.5-0.9) mg/dL GFR Calculation (90-130) mL/min Glucose (65-115) mg/dL Calculated Osmolal ity (285-295) mOsm/k g Lactic Acid 1.0 (0.5-2.2) mmol/L Calcium (8.5-10.5) mg/dL Total Bilirubin (0.15-1.2) mg/dL AST (0-32) U/L ALT (0-33) U/L Alkaline Phosphata se (35-105) IU/L C-Reactive Protein (0.0-4.9) mg/L NT-Pro-B Natriuret Pep (0-125) pg/mL Total Protein (6.6-8.7) g/dL Albumin (3.5-5.2) g/dL Globulin (1.3-4.6) g/dL SARS-CoV-2 Ag (Rap id) Negative (Negative) 08/15/20 Range/Units 05:53 WBC (4.0-10.0) 10^3/ uL RBC (4.1-5.3) 10^6/u L Hgb (11.5-15.3) g/dL Hct (37.0-47.0) % MCV (81-99) fL MCH (28.0-34.0) pg MCHC (30.0-36.0) g/dL RDW (12.1-15.1) % Plt Count (130-400) 10^3/c mm MPV (7.4-10.4) fL Neut % (Auto) % Lymph % (Auto) % Corson % (Auto) % Eos % (Auto) % Baso % (Auto) % Neut # (Auto) (1.8-7.7) 10^3/u L Lymph # (Auto) (0.8-4.8) 10^3/u L Corson # (Auto) (0.2-0.9) 10^3/u L Eos # (Auto) (0.0-0.8) 10^3/u L Baso # (Auto) (0.0-0.1) 10^3/u L Nucleated RBC % (a uto) % Nucleated RBCs # /100WBC Fibrinogen (174-498) mg/dL D-Dimer (0-0.59) ug/mIFE U Specimen Type Arterial Sample Site Radial, right ABG pH 7.43 (7.35-7.45) ABG pCO2 42.6 (35-45) mmHg ABG pO2 67.4 L (80.0-100.0) mmH g ABG HCO3 28.3 H (22-26) mmol/L ABG Base Excess 3.5 H (-2.0-2.0) mmol/ L Terence Test Pos Hematocrit 41.3 (37-47) % O2 Delivery Device Room air FiO2 21.0 % Developer Advisor ID Harkr Sodium (136-145) mmol/L Potassium (3.5-5.1) mmol/L Chloride (98-107) mmol/L Carbon Dioxide (22-29) mmol/L Anion Gap (5-19) BUN (8-23) mg/dL Creatinine (0.5-0.9) mg/dL GFR Calculation (90-130) mL/min Glucose (65-115) mg/dL Calculated Osmolal ity (285-295) mOsm/k g Lactic Acid (0.5-2.2) mmol/L Calcium (8.5-10.5) mg/dL Total Bilirubin (0.15-1.2) mg/dL AST (0-32) U/L ALT (0-33) U/L Alkaline Phosphata se (35-105) IU/L C-Reactive Protein (0.0-4.9) mg/L NT-Pro-B Natriuret Pep (0-125) pg/mL Total Protein (6.6-8.7) g/dL Albumin (3.5-5.2) g/dL Globulin (1.3-4.6) g/dL SARS-CoV-2 Ag (Rap id) (Negative) Discharge Plan Discharge Patient Disposition: Home Clinical Impression: COVID-19, Mass in chest Condition: Stable Prescriptions: New dexamethasone 6 mg tablet 6 mg PO DAILY Qty: 7 RF: 0 albuterol sulfate 90 mcg/actuation HFA aerosol inhaler 2 inh INHALATION Q4H PRN (Reason: shortness of breath or wheezing) Qty: 18 RF: 0 No Action albuterol sulfate 90 mcg/actuation HFA aerosol inhaler See Rx Instructions .ROUTE .COMPLEX Qty: 8.5 RF: 2 atorvastatin 20 mg tablet See Rx Instructions .ROUTE .COMPLEX Qty: 30 RF: 3 ergocalciferol (vitamin D2) 1,250 mcg (50,000 unit) capsule See Rx Instructions .ROUTE .COMPLEX Qty: 4 RF: 2 lisinopril 40 mg tablet 40 mg PO DAILY Qty: 30 RF: 4 pantoprazole 40 mg tablet,delayed release (DR/EC) 40 mg PO BID Qty: 60 RF: 4 sertraline 100 mg tablet See Rx Instructions .ROUTE .COMPLEX Qty: 30 RF: 3 trazodone 100 mg tablet See Rx Instructions .ROUTE .COMPLEX Qty: 30 RF: 3 (DME) BLOOD PRESSURE CUFF See Rx Instructions .Route .MEDSUPPLY Qty: 1 RF: 0 diazepam 5 mg tablet 5 mg PO BID Qty: 60 RF: 1 Discharge Orders: Discharge ED (Routine); Ordered 08/15/20 Ordered By: Raymon Roman Referrals: Betsy Rivero MD [Primary Care Provider] - Discharge Diet: Usual diet Discharge Activity: Limit activity as instructed Patient Instructions: Opioid Safety Activity Restrictions/Additional Instructions: Monitor oxygen at home on a regular basis if falls below 90 to 92% consistently return to the emergency room. Maintain self quarantine until your Covid results gets back. Sign Out Sign Out Data: Patient Sign Out occurred on 08/15/20 at 06:07. Patient's care was discussed, and care was transferred from to Raymon Roman DO. Coding Level of Care Code ED Manager Supply Chain Planning for Anastacia Fwd Exam Comprehensive
[2020-08-15 05:39] LABS: Basophils % 0.6 %; Eosinophils # 0.5 10^3/uL (0.0-0.8); Eosinophils % 6.5 %; Hematocrit 42.1 % (37.0-47.0); Hemoglobin 13.4 g/dL (11.5-15.3); Lymphocytes # 2.4 10^3/uL (0.8-4.8); Lymphocytes % 33.8 %; Mean Corpuscular HGB Conc 31.8 g/dL (30.0-36.0); Mean Corpuscular Hemoglobin 27.9 pg (28.0-34.0); Mean Corpuscular Volume 87.5 fL (81-99); Mean Platelet Volume 11.8 fL (7.4-10.4); Monocytes # 0.5 10^3/uL (0.2-0.9); Monocytes % 7.5 %; Neutrophils % 51.3 %; Nucleated Red Blood Cells % 0 %; Platelet Count 189 10^3/cmm (130-400); Red Blood Count 4.81 10^6/uL (4.1-5.3); Red Cell Distribution Width 14.1 % (12.1-15.1); White Blood Count 7.2 10^3/uL (4.0-10.0)
[2020-08-15] MEDS: dexamethasone 4 mg/mL INJ 10 MG IVP (05:42)
[2020-08-15] MEDS: albuterol 8 gm MDI 2 PUFF INHALATION (06:00)
[2020-08-15 06:03] LABS: ABG PCO2 42.6 mmHg (35-45); ABG PH Result 7.43 (7.35-7.45); Arterial Blood Gas Hematocrit 41.3 % (37-47); Base Excess ABG 3.5 mmol/L (-2.0-2.0); Blood Gas Allen Test Pos; Blood Gas Sample Type Arterial; HCO3 ABG 28.3 mmol/L (22-26); PO2 ABG 67.4 mmHg (80.0-100.0)
[2020-08-15 06:04] LABS: Blood Gas Operator Identificat HARKR; Blood Gas Sample Site Radial, right; Oxygen Device ROOM AIR
[2020-08-15 06:05] LABS: Alanine Aminotransferase < 5 U/L (0-33); Albumin Level 4.1 g/dL (3.5-5.2); Alkaline Phosphatase 80 IU/L (35-105); Anion Gap 15.1 (5-19); Aspartate Amino Transferase 14 U/L (0-32); Blood Urea Nitrogen 17 mg/dL (8-23); C Reactive Protein 3.7 mg/L (0.0-4.9); Calcium 9.1 mg/dL (8.5-10.5); Carbon Dioxide 26 mmol/L (22-29); Chloride 103 mmol/L (98-107); Creatinine Clr Calc Pharmacy 99.3081; Fibrinogen 418 mg/dL (174-498); Globulin 2.6 g/dL (1.3-4.6); Glomerular Filtration Rate 85.4 mL/min (90-130); Glucose 139 mg/dL (65-115); NT Pro B Type Natriuretic Pept 94 pg/mL (0-125); Osmolality Calculated 294 mOsm/kg (285-295); Potassium 4.1 mmol/L (3.5-5.1); Sodium 140 mmol/L (136-145); Total Bilirubin 0.4 mg/dL (0.15-1.2); Total Protein 6.7 g/dL (6.6-8.7)
[2020-08-15 06:17] LABS: SARS Covid-2 Antigen Negative (Negative)
[2020-08-15 06:21] LABS: D Dimer 1.04 ug/mIFEU (0-0.59)
--- NOTE | 2020-08-15 06:56 | CTR_ITS ---
PROCEDURE INFORMATION: Exam: CTA Chest With Contrast Exam date and time: 08/15/2020 6:56 AM Age: 59 years old Clinical indication: Cough and shortness of breath; Additional info: Dyspnea cough, L hilar chest mass TECHNIQUE: Imaging protocol: Computed tomographic angiography of the chest with contrast. 3D rendering (Not supervised by radiologist): MIP and/or 3D reconstructed images were created by the technologist. Radiation optimization: All CT scans at this facility use at least one of these dose optimization techniques: automated exposure control; mA and/or kV adjustment per patient size (includes targeted exams where dose is matched to clinical indication); or iterative reconstruction. Contrast material: OMNI 350; Contrast volume: 74 ml; Contrast route: INTRAVENOUS (IV); COMPARISON: 1. CT chest abd pel w con* 12/19/2019 11:31 AM 2. CR (CHEST, ) 08/15/2020 5:32 AM RADIATION DOSE METRICS: Total DLP (mGy-cm): 569.72 FINDINGS: Pulmonary arteries: No pulmonary emboli. Aorta: No aortic aneurysm. Lungs: Mass abuts the pulmonary trunk without evidence of invasion or narrowing. Pleural spaces: Unremarkable. No pneumothorax. No pleural effusion. Heart: Unremarkable. No cardiomegaly. No pericardial effusion. Mediastinal space: Redemonstration of a left hilar mass, slightly enlarged, measuring 5.1 x 6 x 5.6 cm, previously 4 x 4.3 x 5.2 cm. Mass abuts the pulmonary trunk without evidence of invasion or narrowing. Lymph nodes: No mediastinal or hilar adenopathy. Gallbladder and bile ducts: Status post cholecystectomy. Stomach and bowel: Previous laparoscopic banding of the stomach noted. Bones/joints: Partially imaged surgical hardware in the lower cervical spine. No lytic or blastic lesions. No acute fracture. Soft tissues: Unremarkable. CT/CT angio chest PE protcl [id number] IMPRESSION: 1. No pulmonary emboli. 2. No consolidation. 3. Redemonstration of a left hilar mass, slightly enlarged, measuring 5.1 x 6 x 5.6 cm, previously 4 x 4.3 x 5.2 cm. Mass abuts the pulmonary trunk without evidence of invasion or narrowing. Differential includes but not limited to, as previously noted thymic neoplasm or lymphoma. Radiation Dose CTDIVOL = (mGy): DLP = 569.72 (mGy-cm)
[2020-08-15] MEDS: iohexol 350 mg/mL 100 mL Btl IV (07:31)
--- NOTE | 2020-08-15 08:05 | XR_ITS ---
WS: [id number] Portable AP upright chest, 08/15/2020 0817 hours Clinical Data: dyspnea/cough Comparison: Portable chest, 0541 hours Findings: The left hilar mass remains unchanged. It has a smooth border and abuts the left cardiac robin rder. The right lung is clear. The heart is normal. Pulmonary vascularity is not increased. No pneumo madeline or pneumothorax is present. There is an anterior cervical disc fusion. There are clips in the rig ht upper quadrant from a cholecystectomy. XR/XR chest 1V portable [id number] Impression: No change in 6.4 cm left hilar mass.
== END 2020-08-15 09:50 | disposition home or self-care (01) ==
PROVIDERS: Emergency Medicine; Emergency Provider Family Medicine; PCP Family Medicine
DX: U07.1 COVID-19 (principal); R22.2 Localized swelling, mass and lump, trunk; I10 Essential (primary) hypertension; Z77.22 Contact with and (suspected) exposure to environmental tobacco smoke (acute) (chronic)
CPT/HCPCS: 36600; 71045; 71275; 80053; 82803; 83605; 83880; 85025; 85378; 85384; 86140; 87040; 87426; 93005; 94640; 96374; 99284; J1100; J3535; Q9967